=== PATIENT | female | born 1995 | race Caucasian/White ===

== ENCOUNTER 2019-10-26 21:57 | Emergency (ER) | payer SELFPAY ==
[2019-10-26] MEDS ORDERED: Ondansetron ODT 4 MG TAB ONE (22:07)
== END 2019-10-26 22:42 | disposition home or self-care (01) ==
LOC: BURERS 21:57
DX: O21.8 Other vomiting complicating pregnancy (principal); Z3A.10 10 weeks gestation of pregnancy
CPT/HCPCS: Q0162